=== PATIENT | male | born 1950 | race Caucasian/White ===

== ENCOUNTER 2023-04-22 14:44 | Outpatient (CLI) | payer MEDICARE, BC ==
--- NOTE | 2023-04-22 16:14 | SLEEP CARE CONSULTATION ---
Information from patient questionnaire entered by Radha Griffith. I have reviewed and concur with the information entered by Radha Griffith. This document represents the service I personally performed and the decisions made by me, Evelia Cai ARNP. History of Present Illness Service Date and Time: 04/22/2023 1444 Reason for Visit: New patient, Previously diagnosed sleep apnea, sleep apnea on CPAP therapy Accompanied by: Spouse (Josseline) Chief Complaint: reports: Other (TRANSFER FROM [facility]) Date of Onset: Usual bedtime: 930PM Time it takes to fall asleep: 15-30MIN Snores at night: Yes Observed to quit breathing while asleep: Yes Sleeps alone due to snoring: No Number of times waking at night: 3 Reasons for waking at night: reports: Bathroom, Other (SINUS/HEAT) Recalls having dreams: No Usually gets out of bed at: 5-630AM Feels refreshed in the morning: No Morning headache: No Sleepy or fatigued during the day: Yes Ever fallen asleep while driving: No Takes day naps: Yes Dreams during day naps: No Prior sleep studies: Yes Year and Where: [facility] Additional HPI information: KAT ZEPEDA was previously diagnosed to have very severe, AHI 67.6, obstructive sleep apnea-hypopnea syndrome as seen in sleep study dated 06/11/2014 done through [facility] and comes in with spouse today to establish care for CPAP therapy. - Parasomnia Symptoms Ever been unable to move upon waking from sleep: No Walks in sleep: No Talks in sleep: No Ever acted out dreams in sleep: No Ever felt weak in the knees when startled or emotional: No Bothered by creepy, crawly, restless sensations in legs: No Problems with memory or concentration: No CPAP Compliance Data - Data Reviewed with Patient Average duration of nightly device use: 3 hours 56 minutes Compliance rate %: 12.1 (38/182 days used) Current pressure setting (cmH2O): 5-15 Humidity settin Heated hose setting: off Average residual AHI: 2.4 Average large leak: 1 mins 49 secs Compliance data discussion: He has a Hilaria TapRushstation recertified replacement. He is getting his supplies through [facility]. He is using a Dreamwear nasal pillows mask, medium c ushion. He does have backup pillows and filters. Subjective Patient concerns: reports: nasal congestion, dry mouth, nose, throat (dry mouth). denies: aerophagia, mask discomfort, air blowing in eyes, mask leak noise, condensation in mask/hose Observed to snore while using device: No Current pressure setting perceived as: comfortable On therapy, patient: reports: other (not noticing improvement in sleep/restfulness). denies: drowsiness while driving Initial [place] Sleepiness Scale score: 6 (04/20/23) Past Medical History Past Medical History: reports: Hypertension, Arthritis, Other (prostate reduction surgery) Social History The patient's occupation is a RE. Patient is and lives in [place]. Have you smoked in the past 12 months: No Alcohol use: Yes Alcohol amount and frequency: 8OZ WINE 5X WEEKLY Caffeine use: Yes Caffeine amount and frequency: 2-3 CUPS DAILY Family History Family history of sleep disordered breathing: No Family Hx Sleep Apnea: Father: Snoring Allergies and Home Medications Known drug allergies: Yes (lisinopril, levothyroxine) Drug allergies reviewed: Yes Home medication list reviewed: Yes (see updated list in EMR) Allergy and home medication list: Allergies lisinopril Adverse Reaction (Intermediate, Verified 04/22/23 08:51) Respiratory Cough Levofloxacin, adverse reaction Review of Systems Cardiovascular: reports: high blood pressure, leg or foot swelling Respiratory: reports: chronic cough Gastrointestinal: reports: heartburn Urinary: reports: frequency Neurological: reports: seizure. denies: headaches Psychiatric: denies: anxiety, depression Ear/Nose/Throat: reports: nasal congestion, sinus problems, dry mouth/throat Musculoskeletal: reports: joint pain Immunologic: reports: sneezing, allergies to food or environment Physical Exam Vital signs obtained and entered by: RADHA Hoyt MA Blood Pressure: 126/70 (left arm) Cuff size: regular Heart Rate: 85 O2 Saturation: 96 Height: 5 ft 8 in Weight: 277 lb 6.4 oz Body Mass Index: 42.1 BMI Classification: Morbidly Obese Neck circumference: 18 Heart: regular rate and rhythm Lungs: clear bilaterally Impression and Plan 1. Obstructive Sleep Apnea-Hypopnea Syndrome, very severe, with poor treatment compliance and good apnea control. On CPAP therapy, the patient does not feel he gets better rest but he is not consistently using his CPAP for 4 hours or more. I advised him to try to get 4 hours or more on nights he uses his CPAP and to use it more often. He has issues with nasal congestion which limits his ability to use his CPAP. He will end up taking it off or just not wearing it. Nasal congestion can be reduced with increasing the CPAP humidity. The heated hose can be adjusted higher if condensation with higher humidity setting. Saline nasal spray can be used prior to CPAP to clear nasal secretions and wash off any nasal allergens to facilitate nasal breathing. In addition, a steamy shower before bed will often assist nasal drainage. His humidity is set at 2 and I advised him to try increasing to 3. He voiced understanding. He does not take his CPAP when traveling and he was on vacation with his for about a month or so recently. He is also wanting to get a different DME because the one he has does not have a presence in [place]. For patient supply concerns, I will have my technical support coordinator inform of DME options. A [facility] prescription will then be made. Patient advised to contact this office if further supply problems. Patient's apnea severity and rationale for treatment to reduce apnea, improve sleep quality and reduce cardiovascular and cerebrovascular events was reviewed. I also reviewed the benefit of consistent device use of CPAP for hypertension. 2. Obesity, unspecified. Currently patients BMI is 42.1. Obesity increases the risk of apnea, CPAP pressure requirements and overall health risks especially cardiovascular and diabetes. Thus patient is advised to lose weight. * Continue auto CPAP pressure at 5-15 cmH2O * Transfer DME * Update supply prescription * Notify me if snoring with mask or feeling that the pressure is too much or too little * Attempt to lose weight * Call this office if any problems using CPAP * Return for follow up in 1 year, or sooner if concerns arise Counseling Topics: Spare mask, Weight loss health impact Visit Type: In Office Time Spent with Patient (minutes): 35 Provider Statement: I spent 100% of the Face to Face Visit with the patient with greater than 50% spent counseling the patient and coordination of care.
[2023-04-22 16:32] VITALS: BP 126/70
== END 2023-04-22 14:45 | disposition home or self-care (01) ==
LOC: SC 14:44
PROVIDERS: ATTEND Nurse Practitioner Family
DX: G47.33 Obstructive sleep apnea (adult) (pediatric) (principal); E66.01 Morbid (severe) obesity due to excess calories; Z68.41 Body mass index [BMI] 40.0-44.9, adult
CPT/HCPCS: 99203; G0463; 99212